=== PATIENT | male | born 1985 | race Caucasian/White ===

== ENCOUNTER 2019-09-11 02:02 | Emergency (ER) | payer MEDICAID ==
[~2019-09-11] VITALS: Ht 175.3 cm; Wt 72.6 kg
[2019-09-11 02:10] VITALS: BP 136/90
--- NOTE | 2019-09-11 02:10 | NUR ---
TO BED # 02 AMBULATORY
--- NOTE | 2019-09-11 02:16 | NUR ---
34 Y/O M PRESENTS TO ED WITH C/O LLQ ABDOMINAL PAIN X2 MONTHS. PAIN WORSENING WITHING LAST WEEK. NON-RADIATING PAIN. LLQ TENDER TO TOUCH. +BLOATING. BOWEL SOUNDS PRESENTS X4 QUADRANTS. PT DENIES N/V/D, HEMATURIA, DYSURIA, AND FEVER,CHILLS. BEDRAIL X1 UP. FAMILY AT BEDSIDE. WILL CONTINUE TO MONITOR.
--- NOTE | 2019-09-11 03:05 | NUR ---
BLOOD DRAWN, UA COLLECTED AND TAKEN TO LAB.
[2019-09-11 03:12] LABS: BILIRUBIN,URINE NEGATIVE (NEGATIVE); BLOOD, URINE NEGATIVE (NEGATIVE); COLOR,URINE YELLOW (YELLOW); LEUKOCYTE ESTERASE ,URINE NEGATIVE (NEGATIVE); NITRITE, URINE NEGATIVE (NEGATIVE); PH,URINE 7.5 (5.0-9.0); UGLUCOSE NEGATIVE (NEGATIVE)
[2019-09-11 03:13] LABS: BASOPHILS % (AUTO) 0.4 % (0.0-2.0); EOSINOPHILS # (AUTO) 0.2 K/uL (0-0.4); EOSINOPHILS % (AUTO) 1.6 % (0.0-4.0); HEMATOCRIT 48.2 % (36-52); LYMPHOCYTES # (AUTO) 3.5 K/uL (2.0-11.5); MEAN CORPUSCULAR HEMOGLOBIN 30 pg (27-31); MEAN CORPUSCULAR HGB CONC 33 g/dL (33-37); MEAN CORPUSCULAR VOLUME 90.1 fL (80-94); MONOCYTES # (AUTO) 0.9 K/uL (0.8-1.0); MONOCYTES % (AUTO) 7.9 % (1.7-9.3); NEUTROPHILS # (AUTO) 6.7 K/uL (1.8-7.7); NEUTROPHILS % (AUTO) 59.1 % (42.2-75.2); PLATELET COUNT (AUTO) 263 K/uL (140-450); RED BLOOD CELL COUNT(AUTO) 5.35 MIL/uL (4.20-6.10); RED CELL DISTRIBUTION WIDTH 13.7 % (11.6-13.7); WHITE BLOOD COUNT (AUTO) 11.3 K/uL (4.8-10.8)
[2019-09-11 03:23] LABS: APPEARANCE,URINE HAZY (CLEAR); RBC,URINE 0-5 /HPF (0-5); WBC,URINE 0-5 /HPF (0-5)
[2019-09-11 03:30] LABS: ALBUMIN 4.5 g/dL (3.4-5.0); ANION GAP 17.5 (8-16); CARBON DIOXIDE 26.2 mmol/L (21-32); CREATININE 0.8 mg/dL (0.7-1.3); POTASSIUM 3.7 mmol/L (3.5-5.1); TOTAL BILIRUBIN 0.3 mg/dL (0.0-1.0)
[2019-09-11 04:26] VITALS: BP 121/92
--- NOTE | 2019-09-11 04:27 | NUR ---
PT SEATED UPRIGHT. VSS. PT REPORTS "I'M FEELING OK RIGHT NOW." PAIN LEVEL AT 5/10 TO LLQ[address] FAMILY [address] [facility]. WILL CONTINUE TO MONITOR.
--- NOTE | 2019-09-11 05:03 | NUR ---
CALLED RAD AND S/W KAYDEN REGARDING CT REPORT. KAYDEN WILL BRING RESULTS.
--- NOTE | 2019-09-11 05:04 | NUR ---
CT REPORT GIVEN TO DR. BLACKWELL.
== END 2019-09-11 05:13 | disposition home or self-care (01) ==
LOC: MED 02:02
DX: R10.9 Unspecified abdominal pain (principal)
CPT/HCPCS: 36415; 80053; 81001; 83690; 85025; 87086; 99284